=== PATIENT | female | born 1940 | race Caucasian/White ===

== ENCOUNTER 2017-02-02 10:29 | Inpatient (IN) | payer MEDICARE, OTHER ==
[2017-02-02] VITALS (11 sets, daily range): BP systolic 102–170; BP diastolic 62–85; PULSE 57–68; RESP 10–18; O2SAT 96–100
[~2017-02-02] VITALS: Ht 170.2 cm; Wt 77.4 kg
[2017-02-02] MEDS: Lactated Ringer's 1,000 ML IV SCH ×5 (05:00→15:55)
--- NOTE | 2017-02-02 06:57 | PCM.HPANE ---
Patient Data Surgeon Admitting Provider: Attending Provider:Bernard Nagy MD Primary Care Physician:Bonifacio Bernard MD Other Provider:[facility] Reason for Visit Left Knee Pain, S/P Partial Left Knee Replacement Ht/WT & BMI Height (Feet): 5 Height (Inches): 5 Weight (Kilograms): 78.65 Body Mass Index 28.00 Allergies Uncoded Allergies: NKDA (Allergy, Unknown, 01/27/17) Past Anesthesia History Anesthesia History: Positive for:: Abnormal Airway (Thyroid enlargement), Anesthesia Reactions (Nausea and vomiting), Denies:: Difficult Intubation, Fam Anesthesia Reaction, Fam Malignant Hypertherm, Malignant Hyperthermia Diabetes History Hx Diabetes?: Yes Type of Diabetes: Type II Glycemic Control: Oral Medication MRSA MRSA: No Medications Blood Thinner: Aspirin Last Dose Blood Thinner: Jan 27, 2017 Hypertension Medication: Yes (Lisinopril) Home Meds Incl Beta Fabiola: No Reported Medications Metformin 500 Mg [id number] Mg PO DAILY #2 TABLET Ref 0 01/27/17 Lisinopril 20 Mg Hlltse31 Mg PO DAILY 30 Days Ref 0 01/27/17 Atorvastatin (Lipitor)10 Mg Tab10 Mg PO DAILY Ref 0 01/27/17 Aspirin 81 Mg Zolihn11 Mg PO DAILY Ref 0 01/27/17 History History of ENT Problems?: Yes HEENT History: Positive for:: Abnormal Airway (Thyroid enlargement) Denies:: Cataracts Difficult Intubation Dysphagia Glaucoma Hearing Problem Sinus Problem Denture Type: None Teeth Condition: Within Normal Limits Hx of Heart Problems?: No Cardiovascular History: Positive for:: Hypertension (lisinopril) Denies:: AICD Heart Murmur Pacemaker Peripheral Vascular Rheumatic Fever Thrombophlebitis Valvular Heart Disease Hx of Respiratory Problem?: No Respiratory History: Denies:: Asthma COPD Chest Surgery Cough Dyspnea Emphysema Hemoptysis Oxygen Administration Pneumonia Pulmonary Embolism Tuberculosis Use of C-PAP Machine Use of Inhalers / NEBS Hx Neurologic Problems?: No Hx of GI Problems?: Yes Hx of Problems?: Yes Genitourinary History: Denies:: HX of Hemodialysis Kidney Stones Urinary Tract Infection HX of Peritoneal Dialysis: No Skin History: Denies:: History Skin Disorders? Pressure Ulcers Hx Musculoskeletal Problems?: Yes Musculoskeletal History: Positive for:: Degenerative Joint (Lt knee) Joint Replacement (Left knee) Osteoarthritis (knees) Denies:: Back Injury Fibromyalgia Myasthenia Gravis Rheumatoid Arthritis Systemic Lupus Hx of Psycho/Social Problems?: No Hx Surgeries?: Yes (2009) Hx Any Other Health Problems?: Yes Other History: Positive for:: Cancer (Malignant. melonoma) Hospitalization (neck surgery 2009) Denies:: Endocrine Disease Thyroid Disease History Blood Transfusions: Positive for:: Accept Blood Products? Denies:: Blood Transfuse Reaction Blood Transfusions Hx Diabetes: Yes Hx Alcohol Use: Yes (couple glasses of wine a week)Hx Substance Use: No Stop/Bang S-Snoring: Do You Snore Loudly: No T-Tired: feel tired, fatigued: No O-Obsered: Observed not breath: No P-Blood Pressure: treated: Yes B- Body Mass Index > 35 kg/m2: No A- Age over 50: Yes N- Neck Large Circumference: No G- Gender Male: No HILARIA Total Score: 2 Risk Assessment Category Category 1A: Patient has history of documented sleep apnea, and HAS NOT received any narcotic, sedative or anesthesia administration during this stay. Category 1B: Patient has history of documented sleep apnea, and HAS received any narcotic , sedative or anesthesia administration during this stay Category 2: Patient has SUSPECTED Obstructive Sleep Apnea, and HAS received any narcotic , sedative or anesthesia administration during this stay. Category 3: Patient has SUSPECTED Obstructive Sleep Apnea and HAS NOT received narcotic, sedative or anesthesia administration during this stay. Category 4: Outpatient in Procedural Areas with known sleep apnea or who screen positive for High Risk via the STOP/BANG questionnaire. Exam Exam General Appearance: Alert, Oriented X3, Cooperative HEENT/AIRWAY: MP 2 Lungs: Clear to Auscultation Heart: Exam Unremarkable Plan Impression Patient chart reviewed, patient interviewed and anesthestic plan with risks, benefits, and alternatives discussed, and informed consent obtained. ASA Physical Status: ASA2 Mod Systemic Disease Anesthetic Plan: SAB Bene/Risks/Altern/Consents: Yes HP Complete Prior to Induction: Yes Bertin Mauro MD Feb 02, 2017 06:57
[~2017-02-02 10:29] MED LIST: ASPI-973 PO; ATRV10T PO; Bupivacaine Liposome 1.3% 20 mL Inj NERVEBLOCK ONE; CeFAZolin Inj 2 GM in IV Premix 1 EACH IV SCH; LISI-567 PO; METF500T4 PO; Tranexamic Acid 100 mg/mL 10 mL Inj IV SCH; Vancomycin Dose per Pharmacist XX ONE
[2017-02-02] MEDS ORDERED: CeFAZolin 2 Gm/50 mL D5W Duplex Bag IV ONE (10:46)
[2017-02-02] MEDS: Vancomycin Inj 1,250 MG in 0.9% Sodium Chloride 250 ML IV SCH (11:10)
[2017-02-02] MEDS ORDERED: 0.9% Sodium Chloride 100 ML ONE (12:38)
[2017-02-02] MEDS ORDERED: Bupivacaine Liposome 1.3% 20 mL Inj ONE (12:38)
[2017-02-02] MEDS ORDERED: Lactated Ringer's 500 ML IV PRN (12:47)
[2017-02-02] MEDS ORDERED: HYDROmorphone 1 mg/mL Inj IVPUSH PRN (12:50)
[2017-02-02] MEDS ORDERED: Ondansetron 2 mg/mL 2 mL Inj IVPUSH PRN ×2 (12:50→15:00)
[2017-02-02] MEDS ORDERED: Labetalol 5 mg/mL 4 mL Inj IV PRN (12:50)
[2017-02-02] MEDS ORDERED: Atropine 0.4 mg/mL Inj IVPUSH PRN (12:50)
[2017-02-02] MEDS ORDERED: Dexamethasone 4 mg/mL Inj IVPUSH PRN (12:50)
[2017-02-02] MEDS ORDERED: EPHEDrine Sulfate 50 mg/mL Inj IVPUSH PRN (12:50)
[2017-02-02] MEDS ORDERED: Phenylephrine 10,000 mCg/mL Inj IVPUSH PRN (12:50)
[2017-02-02] MEDS ORDERED: hydrALAZINE 20 mg/mL Inj IVPUSH PRN (12:50)
[2017-02-02] MEDS ORDERED: fentaNYL-PF 50 mCg/mL 2 mL Inj IVPUSH PRN (12:50)
[2017-02-02] MEDS ORDERED: Bupivacaine Liposome 1.3% 20 mL Inj INFILTRATE ONE (13:14)
[2017-02-02] MEDS ORDERED: Gentamicin 40 mg/mL 2 mL Inj IRRIGATION ONE (13:14)
[2017-02-02] MEDS ORDERED: Bupivacaine-MPF 0.25% 30 mL Inj INFILTRATE ONE (13:15)
[2017-02-02] MEDS ORDERED: Bupivacaine-MPF 0.25%/EPI 30 mL Inj INJ ONE (13:15)
[2017-02-02] MEDS ORDERED: Lactated Ringer's 1,000 ML IV ONE (14:27)
[2017-02-02] MEDS ORDERED: Vancomycin Dose per Pharmacist XX ONE (15:00)
[2017-02-02] MEDS ORDERED: Magnesium Hydroxide 10 mL Oral Concentration PO PRN (15:00)
[2017-02-02] MEDS ORDERED: MetoCLOpramide 5 mg/mL 2 mL Inj IVPUSH PRN (15:00)
[2017-02-02] MEDS ORDERED: Polyethylene Glycol (PEG) 17 Gm Powder PO PRN (15:00)
[2017-02-02] MEDS ORDERED: Sodium Biphos-Phos 133 mL Enema RECTAL PRN (15:00)
[2017-02-02] MEDS ORDERED: diphenhydrAMINE 25 mg Capsule PO PRN (15:00)
--- NOTE | 2017-02-02 15:30 | PCM.ANEP1 ---
Post Anesthesia PACU Phase 1 Assessment Vital Signs Vital Signs Date Time Temp Pulse Resp B/P Pulse Ox O2 Delivery O2 Flow Rate FiO2 02/02/17 15:10 36.0 64 14 151/75 100 Room Air 02/02/17 11:11 36.7 16 165/75 96 Room Air Anesthetic Administered: Regional Block, SAB Level of Alertness: Awake, talking TREADWELL's with Equal Strength: No Pain: No Nausea or Vomiting: No CV Function & Hydration Stable: Yes Airway Device: Oxygen Delivery: Room Air Lungs: Normal Air Movement PACU Phase 2 Assessment Complications: No Follow up Care: No Patient Instructions Provided: N/A Bertin Mauro MD Feb 02, 2017 15:30
--- NOTE | 2017-02-02 15:42 | OP ---
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 PROCEDURE: 1. Revision to total knee replacement. 2. Complete synovectomy. SURGEON: Bernard Nagy M.D. WINDMILL MECHANIC: Fran Dickey (pharmacy technician assistant required due to the complexity of the operation). INDICATIONS: This woman has severe disability with demonstrated progressive loosening of the implant over a two year observation. She is not disabled to the point that she requests and needs to have this revised to pursue activities of daily living. She understands and accepts the potential for risks and complications, which include but is not limited to infection, thromboembolic, neurovascular events, as well as the potential for implant failure. DESCRIPTION OF PROCEDURE: The patient was prepped and draped in the usual sterile fashion. An anteromedial approach was made through her previous incision. An effusion was encountered which was slightly off color, but there was no evidence of infection. Metallic staining of the synovium was noted throughout the knee. The femoral component was noted to be grossly loose and was removed with a clamp. The tibial component had a fixed polyethylene. The polyethylene was removed as well. The patella did sublux laterally. It was cut transversely, sized to a 32 and drill holes were made. Drill holes placed in the distal femur and Whitesides lines. The epicondylar axis was utilized to obtain appropriate rotation after a 5 degree distal femoral cut was made and the femur had been sized to a 6 component. Chamfer cuts were made after the chamfer cutting block was appropriately fixed and the bone fragments removed. All meniscal tissue and osteophytes were removed from the knee. Excess cement was removed where it was loose and/or impeded the revision process. The tibial guide was utilized to make a proximal tibial cut with the bone fragment removed and the tibia was subsequently sized to a D component which was fixed in appropriate position, rotation and trial reduction was performed. The 12 mm polyethylene produced excellent alignment, tracking, soft tissue tension. Wounds were irrigated with extensive sterile irrigant and the components were cemented in place. Excess cement was removed during the curing process and the final construct was assembled. The tourniquet was let down. Hemostasis was achieved and a deep Hemovac drain was left. The wounds were closed with #2 Quill deep throughout the procedure and then at the final end of the procedure a complete synovectomy was performed removing all metal stained synovial tissue, carefully peeling it off the deep capsular tissue with the use of a rongeur, and pickups and Metzenbaum scissors. The deep fascia was then closed with #2 Quill deep followed by 2-0 Vicryl, 3-0, and a 4-0 intracuticular stitch. The patient tolerated the procedure well. There were no complications. She was taken to the recovery room in stable condition. She tolerated the procedure well.
[2017-02-02 15:48] LABS: APPEARANCE,URINE CLEAR (CLEAR,HAZY); COLOR,URINE STRAW (YELLOW); OCCULT BLOOD,URINE NEGATIVE (NEGATIVE); UROBILINOGEN,URINE NORMAL (NORMAL)
[2017-02-02] MEDS: Ketorolac 15 mg/mL Inj IVPUSH PRN (15:58)
--- NOTE | 2017-02-02 16:20 | DRSVH ---
PROCEDURE: X-RAY LEFT KNEE, ONE OR TWO VIEWS ([id number]) INDICATIONS: postoperative knee TECHNIQUE: 2 views of the knee acquired. COMPARISON: [facility], , XR KNEE 1 OR 2VW LT, 05/07/2015, 12:25. FINDINGS: Bones: Patient is status post knee joint arthroplasty revision with a complete left knee prosthesis. Hardware components are in expected positions. Visualized bony structures are intact. Soft tissues: Overlying postoperative changes are noted. IMPRESSION: 1. Expected postsurgical changes status post left knee arthroplasty revision. Dictated by: Gibson Lopez M.D. on 02/02/2017 at 16:13 Approved by: Gibson Lopez M.D. on 02/02/2017 at 16:18
[2017-02-02] MEDS: Sodium Chloride LOK Flush 10 mL Syringe IV SCH (16:30)
[2017-02-02] MEDS: HYDROcodone-APAP 5-325 mg Tablet PO PRN ×2 (16:34→20:29)
[2017-02-02] MEDS ORDERED: Ondansetron 2 mg/mL 2 mL Inj ONE (16:49)
[2017-02-02] MEDS ORDERED: fentaNYL-PF 50 mCg/mL 2 mL Inj ONE (16:49)
[2017-02-02] MEDS ORDERED: HYDROmorphone 0.5 mg/0.5 mL iSecure Syringe IVPUSH PRN (17:00)
--- NOTE | 2017-02-02 19:17 | NUR ---
POST-OP Patient received from PACU via a hospital bed. On room air. IVF ongoing. Dressing in her L knee is CDI. Hemovac in place, clamped at this time. To be unclamped at 2000 per report. IFC intact and draining to [place] colored UO. Patient rated her pain as 5/10 on her L knee. Denies nausea. No emesis noted. Denies SOB. Oriented to room and call light. Vital signs done by Melissa Burns CNA upon patients arrival to the floor but was not saved.
--- NOTE | 2017-02-02 20:00 | NUR ---
HEMOVAC Hemovac unclamped at 1999, draining well, sanguineous fluid. Addendum: 02/03/17 at 0439 by ULISES SANZ RN At 414, at total of 8.25 hours, hemovac put out 90 ml, for 10.9ml/hr.
[2017-02-02] MEDS ORDERED: 0.9% Sodium Chloride 250 ML ONE (20:08)
[2017-02-02] MEDS: CeFAZolin Inj 2 GM in IV Premix 1 EACH IV SCH (20:14)
[2017-02-02] MEDS: Senna-Docusate 8.6-50 mg Tablet PO SCH (20:16)
[2017-02-02] MEDS ORDERED: Vancomycin Inj 1,250 MG in 0.9% Sodium Chloride 250 ML IV ONE (23:00)
[2017-02-03] MEDS: Sodium Chloride LOK Flush 10 mL Syringe IV SCH ×4 (00:16→22:56)
[2017-02-03 00:20] VITALS: BP 143/71; PULSE 69; RESP 18; O2SAT 97
[2017-02-03] MEDS: HYDROcodone-APAP 5-325 mg Tablet PO PRN ×4 (00:20→12:19)
[2017-02-03] MEDS: CeFAZolin Inj 2 GM in IV Premix 1 EACH IV SCH (04:16)
[2017-02-03 04:24] VITALS: BP 125/74; PULSE 61; RESP 18; O2SAT 96
[2017-02-03 07:52] LABS: BASOPHILS % (AUTO) 0.6 % (0-3); EOSINOPHILS % (AUTO) 2.1 % (0-5); MONOCYTES % (AUTO) 6.6 % (4-12); Mean Corpuscular Hemoglobin 28.9 pg (27.0-35.0); Mean Corpuscular Volume 89.2 fL (81-100); NEUTROPHILS % (AUTO) 67.6 % (40-74); Platelet Count 270 bil/L (150-400)
[2017-02-03 08:28] VITALS: BP 130/70; PULSE 80; RESP 16; O2SAT 97
[2017-02-03] MEDS: Senna-Docusate 8.6-50 mg Tablet PO SCH ×2 (08:32→20:03)
[2017-02-03] MEDS: Ketorolac 15 mg/mL Inj IVPUSH PRN (11:03)
--- NOTE | 2017-02-03 12:30 | NUR ---
Evaluation completed. Please go to "Notes" then click on "Assessments and Notes" (bottom left corner of screen). Then select appropriate discipline tab on top of screen.
--- NOTE | 2017-02-03 12:37 | PCM.PNORTH ---
Subjective Date of Service: Feb 03, 2017 Visit Information: Reason for Visit Left Knee Pain, S/P Partial Left Knee Replacement Surgery/Surgery Date Post-Op Day # Date of Admission: Feb 02, 2017 at 16:48 Hospital Day # Subjective Palpation awake and alert this morning and sitting up in bed. No complaints of pain at this time. Discussed inpatient therapy with patient and encouraged her to participate fully with him. Also discussed pain medication and moving away from IV pain meds and moving to either [place] 5 with Vistaril or Percocet 5 with Vistaril as needed. Nursing was in the room and we discussed trying to medicate her prior to her therapy sessions. Patient is concerned about discharge on postop day 2 and we have discussed this at some length and I have described to her physical therapy recommendations regarding discharge and when they feel she is appropriate for this. We have also discussed stair training and patient indicates she has 5 steps at home to enter her home. We will discontinue Hemovac drain today on postop day 1 at 24 hours and discontinue Larios by postop day 2. Patient indicates she has arranged formal outpatient therapy to begin next Monday after discharge. Postop General: No Complaints, No Shortness of Breath, No Chest Pain, Good Appetite Pain Management: PO, IV Push Objective Exam Objective Alert and oriented 3 and pleasant. Interoperative dressing is clean dry and intact Calf and thigh are soft and nontender Toe wiggle and sensation are intact at left lower extremity distally Right lower extremity SCD in place and working Larios catheter in place and working Hemovac drain in place and working A few sidesteps only with physical therapy as of this time. Vital Signs and I/O Vital Sign - Last Date Time Temp Pulse Resp B/P Pulse Ox O2 Delivery O2 Flow Rate FiO2 02/03/17 08:28 37.2 80 16 130/70 97 Room Air Intake and Output 02/02/17 02/02/17 02/03/17 Cumulative From/Thru 15:00 23:00 07:00 01/27/17 14:47 - 02/03/17 05:49 Intake Total 400 ml 1398 ml 595 ml 2393 ml Output Total 800 ml 300 ml 690 ml 1790 ml Balance -400 ml 1098 ml -95 ml 603 ml Intake Oral 400 ml 250 ml 650 ml IV Total 400 ml 998 ml 345 ml 1743 ml Output Urine Total 750 ml 300 ml 600 ml 1650 ml Drainage Total 0 ml 90 ml 90 ml Estimated Blood Loss 50 ml 50 ml # Bowel Movements 0 0 Lab & Micro Results Laboratory Tests Test 02/02/17 15:37 02/03/17 05:05 Urine Color Straw (YELLOW) Urine Appearance Clear (CLEAR,HAZY) Urine pH 5.0 (5.0-8.0) Urine Specific [place] 1.005 (1.003-1.035) Urine Protein Negativemg/dL (NEG,TRACE) Urine Glucose (UA) Negativemg/dL (NEGATIVE) Urine Ketones Negativemg/dL (NEGATIVE) Urine Occult Blood Negative (NEGATIVE) Urine Nitrite Negative (NEGATIVE) Urine Bilirubin Negative (NEGATIVE) Urine Urobilinogen Normalmg/dL (NORMAL) Urine Leukocyte Esterase Negative (NEGATIVE) Urine RBC 0-2/hpf (0-2) Urine WBC 0-5/hpf (0-5) Urine Epithelial Cells Few/hpf (NONE-MOD) Urine Crystals None seen (NONE SEEN) Urine Bacteria Few/hpf (NONE-FEW) Urine Hyaline Casts None/lpf (NONE) Urine Granular Casts None seen (NONE SEEN) Urine Waxy Casts None seen (NONE SEEN) Urine Red Blood Cell Casts None seen (NONE SEEN) Urine White Blood Cell Casts None seen (NONE SEEN) Urine Mucus None seen (None Seen) Urine Trichomonas None seen (NONE SEEN) Urine Yeast None (NONE SEEN) Urinalysis Comment None Urine Culture Reflexed Not indicated White Blood Count 8.7th/mm3 (3.8-10.1) Red Blood Count 3.60mil/mm3 (3.90-5.20) Hemoglobin 10.4g/dL (12.0-15.6) Hematocrit 32.1% (35.0-46.0) Mean Corpuscular Volume 89.2fL (81-100) Mean Corpuscular Hemoglobin 28.9pg (27.0-35.0) Mean Corpuscular Hemoglobin Concent 32.4% (32.0-37.0) Red Cell Distribution Width 14.3% (12.3-15.4) Platelet Count 270bil/L (150-400) Neutrophils (%) (Auto) 67.6% (40-74) Lymphocytes (%) (Auto) 23.0% (14-46) Monocytes (%) (Auto) 6.6% (4-12) Eosinophils (%) (Auto) 2.1% (0-5) Basophils (%) (Auto) 0.6% (0-3) Result Diagram: 02/03/17 0505 General Appearance: Alert, Oriented X3, Cooperative, No Acute Distress Extremities: No Compartment Syndrom Noted, Thigh & Calf Soft/Nontender Postop Sensory Motor: Distal Motor Intact, Movement in Toes, Distal Sensation Intact SURGICAL WOUND : Drain Location Body Site: Knee Wound Drainage Type: Hemovac Activity: Activity per PT, Ambulate with PT (weightbearing as tolerated on the left lower extremity using a front wheeled walker) Catheters: Urethral 2 Way Larios Assessment & Plan Impression Patient is a 77-year-old female who is undergone an elective left knee revision surgery on 02/02/[address] Bernard Nagy. Patient is postop day #1 And has had one therapy session which she did not accomplish gait but did take a few side steps. Considering that she is a revision knee surgery her progress may possibly be somewhat slower. Problems: Plan Patient is a 77-year-old female who is undergone an elective left knee revision surgery on 02/02/[address] Bernard Nagy. Continue weightbearing as tolerated on the left lower extremity using a front wheeled walker. Continue formal physical therapy for mobility, gait and safety. Patient has arranged outpatient therapy to begin on 02/08/2017. Continue by mouth pain medications as needed with [place] 5+ Vistaril or Percocet 5+ Vistaril as needed. Continue ASA 81 mg EC by mouth twice a day 6 weeks postop for DVT prophylaxis. Hemovac drain is in and working and will be discontinued this afternoon by nursing. Larios catheter is in and working and will be discontinued no later than postop day #2. Nursing please fit patient with bilateral thigh-high BANDAR hose as ordered today. Right may be fitted today and left may be stated on postop day 2 after bandages change. Nursing please discontinue Larios no later than postop day #2. Nursing please discontinue Hemovac drain today. Nursing please move patient to either [place] 5 with Vistaril or Percocet 5 with Vistaril for by mouth pain control. Please do not continue IV pain medication. Follow-up in 2 weeks at [facility] orthopedic clinic on prearranged appointment for wound check and suture removal. Follow-up in 6 weeks at [facility] orthopedic clinic on prearranged appointment with Dr. Bernard Nagy with left two-view knee x-rays on arrival Anticipate discharge to home with spouse as caregiver on postop day #2, 2016 VTE Prophylaxis: SCDs (right lower extremity), BANDAR Hose (bilateral thigh-high) , Other (ASA 81 mg EC by mouth twice a day 6 weeks postop for DVT prophylaxis) Stevenson Larson PA-C Feb 03, 2017 12:37
[2017-02-03] MEDS ORDERED: oxyCODONE-Acetamin 5-325 mg Tablet PO PRN (12:45)
[2017-02-03] MEDS: hydrOXYzine Pamoate 25 mg Capsule PO PRN ×2 (15:49→23:24)
[2017-02-03 16:49] VITALS: BP 161/78; PULSE 97; RESP 18; O2SAT 96
--- NOTE | 2017-02-03 17:24 | NUR ---
Hemovac Per orders Hemovac d/c'd intact.
--- NOTE | 2017-02-03 18:28 | NUR ---
Activity Pt up with PT this afternoon and walked about 30 feet. Tolerated activity well. Pt had increase in pain this afternoon. Pain medication given with 25mg Vistaril. Pt stated little relief from pain medication, however MD this morning stated we should shy away from IV pain medication and pt states she will get thru it. Pt doing exercises in the bed recommended by PT. Pt up and to the recliner for dinner and able to get oob without assistance. Ice given for knee. Care continues.
[2017-02-03 19:54] VITALS: BP 160/73; PULSE 83; RESP 18; O2SAT 97
[2017-02-04] MEDS: hydrOXYzine Pamoate 25 mg Capsule PO PRN (03:12)
--- NOTE | 2017-02-04 03:43 | NUR ---
Pain Pt had increased pain overnight. Stated she over did it today with PT. Pain 5/10, Oxycodone given at beginning of shift with minor results. Pt agreed to try percocet at the next 4hr interval with vistaril. Pt rated pain 8/10, pain was decrease to 7/10, she states not effective. Ice packs in place and 4hrs later rec'd oxycodone with + effects, stated spasms have decreased. Pt up to BSC, using FWW and assistance to get up, toe touch precautions in place. Neuro checks done, +CMS. Call light in place, bed in low position. Care continues.
[2017-02-04 05:18] VITALS: BP 161/79; PULSE 76; RESP 16; O2SAT 93
[2017-02-04] MEDS: Ketorolac 15 mg/mL Inj IVPUSH PRN (08:06)
[2017-02-04] MEDS: HYDROcodone-APAP 5-325 mg Tablet PO PRN (08:06)
[2017-02-04] MEDS: Senna-Docusate 8.6-50 mg Tablet PO SCH ×2 (08:13→21:21)
[2017-02-04] MEDS: Sodium Chloride LOK Flush 10 mL Syringe IV SCH ×2 (08:13→16:23)
[2017-02-04] MEDS ORDERED: oxyCODONE-Acetamin 5-325 mg Tablet PO PRN (08:23)
[2017-02-04] MEDS ORDERED: Acetaminophen IV 1,000 mg IV ONE (08:25)
[2017-02-04] MEDS ORDERED: 0.9% Sodium Chloride 0 ML ONE (08:45)
--- NOTE | 2017-02-04 09:15 | NUR ---
RADHA signed. Aarti Hernandez PEDIATRIC HOSPITALIST
--- NOTE | 2017-02-04 10:10 | NUR ---
Social Work- Multi-Disciplinary Rounds/Initial Assessment/ Readiness for Discharge Data: See Initial Assessment. Pt is a 77 year old female admitted 02/02/17 for left knee pain, s/p partial left knee replacement per H&P. Pt's insurance is [facility] and [employer]. Pt's PCP is Bonifacio Bernard MD. Pt's DPOA/NOK and identified support person is Hector Mondragon [phone]. Pt's readmit risk score is 0. Pt discussed in AM rounds with photo manager. Pt will work with PT today and anticipate discharge later today or tomorrow. No social work needs identified. SW met with pt at bedside regarding discharge plan, SW role explained. Pt alert and oriented x3. Pt identified her Pt's capacity for self care was assessed. Pt resides on [address] in a single story home with her where she is independent at baseline. Pt has a cane and walker at home for use but at baseline she does not typically use DME. Pt has no history of HH or SNF. PT has evaluated pt and pt was able to ambulate 30 feet CGA with fww. PT anticipates pt to progress and complete stairs prior to discharge. Pt has outpt PT scheduled on [place]. Pt has no LTC or VA benefits. Pt reports that her is independent and active and will be involved in her care. Pt reports that she enjoys golf and family time. Pt easily engaged in conversation and maintained logical thought process, responded appropriately to questions. For these reasons, no concerns related to pt's capacity for self care identified. Pt has DPOA on file, pt's Hector Mondragon is DPOA. Pt provided with SILK WINDING MACHINE OPERATOR contact information and Discharge Planning Checklist. SW instructed pt to call SW phone number if they have needs identified in the booklet. Pt anticipated to discharge home with to transport and follow up with outpt PT. UC aware that pt will require Priority Boarding pass [place] the ferry home. No additional social work needs identified at this time, SW will continue to follow if needs arise. Assessment: Pt who is independent at baseline and who has assistance at home. Plan: Pt anticipated to discharge home with to transport and follow up with outpt PT. UC aware that pt will require Priority Boarding pass for the ferry home. No additional social work needs identified at this time, SW will continue to follow if needs arise. Aarti Hernandez, SILK WINDING MACHINE OPERATOR Addendum: 02/04/17 at 1017 by JUAN BOWEN Amended: Links added.
--- NOTE | 2017-02-04 10:22 | PCM.PNORTH ---
Subjective Date of Service: Feb 04, 2017 Visit Information: Reason for Visit Left Knee Pain, S/P Partial Left Knee Replacement Surgery/Surgery Date L TOTAL KNEE REVISION 02/02/17 Post-Op Day # 2 Date of Admission: Feb 02, 2017 at 16:48 Hospital Day # Subjective Patient reports she had a tough night last night with pain management. She denies nausea. She is passing flatus but no BM yet. She was taking Percocet yesterday but seems to be doing better with Everson and vistaril today. She nods off during our conversation. She is progressing slowly with PT. She was seen by Dr. Nagy this morning, who recommended she work with PT today and plan for discharge tomorrow. She lives on [address] and will need a medical pass [facility]. She has outpatient PT scheduled to start next week. Postop General: No Shortness of Breath, No Chest Pain, Good Appetite Pain Management: PO, IV Push Objective Exam Objective Patient is seen sitting up in bed. She appears quite comfortable. She nods off during our conversation. She had a dose of Everson this morning. Vital Signs and I/O Vital Sign - Last Date Time Temp Pulse Resp B/P Pulse Ox O2 Delivery O2 Flow Rate FiO2 02/04/17 05:18 36.8 76 16 161/79 93 Room Air Intake and Output 02/03/17 02/03/17 02/04/17 Cumulative From/Thru 15:00 23:00 07:00 01/27/17 14:47 - 02/04/17 06:29 Intake Total 1000 ml 200 ml 3593 ml Output Total 740 ml 250 ml 2780 ml Balance 260 ml -50 ml 813 ml Intake Oral 1000 ml 200 ml 1850 ml IV Total 1743 ml Output Urine Total 675 ml 250 ml 2575 ml Drainage Total 65 ml 155 ml Estimated Blood Loss 50 ml # Bowel Movements 0 Result Diagram: 02/03/17 0505 General Appearance: Alert, Oriented X3, Cooperative, No Acute Distress Extremities: Distal Pulses Palpable, Thigh & Calf Soft/Nontender Postop Sensory Motor: Distal Motor Intact, NVI Distally SURGICAL WOUND : Wound Location/Description Left knee: Surgical dressing is removed. The wound is clean, dry and intact. There is no erythema or drainage present. Steri-Strips are in place. The knee is cleansed with hydrogen peroxide and redressed with Silverlon dressing and Island dressing. The drain site is dressed with 2 x 2 gauze and Tegaderm. Activity: Activity per PT, Ambulate with PT (weightbearing as tolerated on the left lower extremity using a front wheeled walker) Catheters: None Assessment & Plan Impression POD #2 status post left total knee revision from a uni- Problems: Plan Weightbearing: Weightbearing as tolerated with walker DVT prophylaxis: Aspirin 81 mg once a day 6 weeks Physical therapy for transfers, progressive ambulation, therapeutic exercise Wound care: Dressing change today by PA today. Silverlon was not available for dressing change. I will change dressing tomorrow prior to DC Patient will need a ferry pass for [place] for tomorrow. Her will check the schedule today Discharge plan: Discharge home tomorrow. Start outpatient physical therapy next week Follow-up plan: In 2 weeks at [facility] with PA for wound check and at [address] Nagy with x-rays Pain Management: Percocet, Toradol, oxycodone, Everson, Vistaril VTE Prophylaxis: SCDs (right lower extremity), BANDAR Hose (bilateral thigh-high) , Other (ASA 81 mg EC by mouth twice a day 6 weeks postop for DVT prophylaxis) Resuscitation Status: CPR: Attempt Resuscitation [place] City[place] Liu PA-C Feb 04, 2017 10:22
[2017-02-04 11:37] VITALS: BP 130/66; PULSE 73; RESP 16; O2SAT 96
--- NOTE | 2017-02-04 12:28 | NUR ---
Pain IV tylenol once has been effective per patient with improved pain 4/10 to left knee. PRN Oxycodone given as ordered prior to patient working with physical therapy this afternoon after meals. Continue to monitor left knee pain.
--- NOTE | 2017-02-04 13:17 | NUR ---
Physical therapy Patient is up and out of room using FWW with physical therapy. PRN oxycodone effective.
[2017-02-04 20:40] VITALS: BP 167/75; PULSE 91; RESP 16; O2SAT 97
[2017-02-05] MEDS: Sodium Chloride LOK Flush 10 mL Syringe IV SCH ×2 (00:44→08:33)
--- NOTE | 2017-02-05 02:47 | NUR ---
Pain Adequate pain control achieved with Roxicodone throughout night. Pt has concerns of timing of pain medication and Physical Therapy. Will mention to day nurse in report to attempt timing 30-60min prior to PT. Addendum: 02/05/17 at 0649 by SASCHA SALCEDO RN Pain increased in morning hours. Vistaril and later Toradol were added to help pain control. Frequent rounding continues.
[2017-02-05] MEDS: hydrOXYzine Pamoate 25 mg Capsule PO PRN ×4 (03:27→15:08)
[2017-02-05 04:37] VITALS: BP 175/82; PULSE 83; RESP 16; O2SAT 97
--- NOTE | 2017-02-05 05:43 | PCM.DIORTH ---
Ortho Discharge Instruction Date of Service: Feb 05, 2017 Dates of Hospitalization Date of Hospital Admission Feb 02, 2017 at 16:48 Providers Admitting Physician: Bernard Nagy MD Primary Care Physician: Bonifacio Bernard MD Attending Physician: Bernard Nagy MD Diet Discharge Diet: No restrictions Activity Discharge Activity-General: Balance rest and activity, Elevate extremity, Elevate & ice extremity, Ice incision 3-5 time/day for 20min Left Lower Extremity: Weight Bearing as tolerated Discharge Assist Device: Front Wheeled Walker Dressing and Incisional Care Discharge Dressing Care: Keep dressing clean, dry & intact, Change soiled dressing (reuse the silver pad for 1 week. Handle it only by the corners. Have clean hands when changing the dressing.), Other (Leave steri strips in place) Discharge Hygiene: May shower (see instructions below), DO NOT soak incision under water, NO bathtub, hot tub or whirlpool Additional Instructions Discharge Instructions Increase activity a little more each day. Push yourself with the bending and straightening. Get up and move every hour you are awake and either do some of the exercises, stretching or walking. You may shower in 2 days, with wound covered in plastic wrap. Weightbearing: Weightbearing as tolerated with walker DVT prophylaxis: Aspirin 81 mg twice a day 6 weeks Start outpatient Physical therapy next week Wear the compression stockings for one month on the surgical leg, and 2 weeks on the right leg. Change the current dressing in 3 days. Get the silver dressing wet with the saline in the syringe, apply silver side to skin, cover with white adhesive dressing. Since pain medications cannot be refilled by phone or fax, you may have your PCP manage further pain medications. Only one office should be handling your prescriptions. Follow Up Plan Follow Up Plan Follow-up plan: In 2 weeks at [facility] with [facility] for wound check and at [address] Nagy with x-rays Call your provider for: Fever, Chills, Shortness of breath, Vomitting, Drainage at incision (increasing), Wound redness, Increasing pain (for no reason ) Becca Wayne PA-C Feb 05, 2017 05:43
--- NOTE | 2017-02-05 05:46 | PCM.PNORTH ---
Subjective Date of Service: Feb 05, 2017 Visit Information: Reason for Visit Left Knee Pain, S/P Partial Left Knee Replacement Surgery/Surgery Date L TOTAL KNEE REVISION 02/02/17 Post-Op Day # 3 Date of Admission: Feb 02, 2017 at 16:48 Hospital Day # Subjective Patient name related well with physical therapy yesterday afternoon. She had increased pain last night. Pain has been relieved with oxycodone, Vistaril and Toradol. Patient plans in getting the 5:[facility] [place] [facility] Postop General: No Shortness of Breath, No Chest Pain, Good Appetite Pain Management: PO, IV Push Objective Exam Objective Patient is seen sitting up in bed Vital Signs and I/O Vital Sign - Last Date Time Temp Pulse Resp B/P Pulse Ox O2 Delivery O2 Flow Rate FiO2 02/05/17 04:37 36.8 83 16 175/82 97 Room Air Intake and Output 02/04/17 02/04/17 02/05/17 Cumulative From/Thru 15:00 23:00 07:00 01/27/17 14:47 - 02/05/17 05:33 Intake Total 950 ml 850 ml 5393 ml Output Total 625 ml 3405 ml Balance 325 ml 850 ml 1988 ml Intake Oral 800 ml 850 ml 3500 ml IV Total 150 ml 1893 ml Output Urine Total 625 ml 3200 ml Drainage Total 155 ml Estimated Blood Loss 50 ml # Voids 4 4 # Bowel Movements 0 0 Result Diagram: 02/03/17 0505 General Appearance: Alert, Oriented X3, Cooperative, No Acute Distress Extremities: Distal Pulses Palpable, No Compartment Syndrom Noted, Tenderness/ Swelling Noted Postop Sensory Motor: Distal Motor Intact, Movement in Fingers, NVI Distally SURGICAL WOUND : Wound Location/Description There is minimal serous drainage on the bandage. Dressing is changed. 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 Discharge plan: Discharge home this afternoon. Start outpatient physical therapy next week Discharge instructions are reviewed with patient and her Follow-up plan: In 2 weeks at [facility] with [facility] for wound check and at [address] Nagy with x-rays Pain Management: [place], oxycodone, toradol, Tylenol, dilaudid IV VTE Prophylaxis: SCDs (right lower extremity), BANDAR Hose (bilateral thigh-high) , Other (ASA 81 mg EC by mouth twice a day 6 weeks postop for DVT prophylaxis) Resuscitation Status: CPR: Attempt Resuscitation [place] PA-C Feb 05, 2017 05:46
[2017-02-05] MEDS: Ketorolac 15 mg/mL Inj IVPUSH PRN (05:48)
--- NOTE | 2017-02-05 07:32 | NUR ---
BP Pt BP yuridia overnight 175/82 - report given to day shift to approach issue with physician. Lisinopril morning dose given early to aid with that. Pt states she takes it in the evening at home.
[2017-02-05] MEDS: Senna-Docusate 8.6-50 mg Tablet PO SCH (08:33)
[2017-02-05 09:04] VITALS: BP 159/83
[2017-02-05] MEDS ORDERED: HYDR-3797 PO (09:36)
[2017-02-05] MEDS ORDERED: OXYC5TAB72 PO (09:36)
[2017-02-05] MEDS ORDERED: ASPI81TA3 PO (09:36)
[2017-02-05] MEDS ORDERED: DOCU-41 PO (09:36)
--- NOTE | 2017-02-05 09:41 | PCM.DC.ORT ---
Discharge Summary Date of Service: Feb 05, 2017 Date of Hospital Admission: Feb 02, 2017 at 16:48 Date of Surgery: Feb 02, 2017 Date of Discharge: Feb 05, 2017 Reason for Hospitalization: Left knee arthritis Procedures Performed: Conversion of left knee medial unicompartmental arthroplasty to total knee arthroplasty Hospital Course: The patient was admitted to the hospital on 02/02/2017 and underwent the above procedure. Antibiotic prophylaxis consisting of Ancef and vancomycin. The surgeon was Dr. Nagy. A Larios was placed perioperatively. Patient tolerated the procedure well and was transferred to recovery room in stable condition. Larios was discontinued on postop day 1. Hemovac drain was discontinued on postop day 1. Patient had physical therapy to work on ambulation and transfers. Weightbearing as tolerated with walker. Pain was managed with Dilaudid, Percocet, Vistaril, Toradol, [place], Tylenol. DVT prophylaxis: Aspirin 81 mg twice a day, SCDs, BANDAR hose. Patient initially had some pain management issues however she progressed well with physical therapy and on POD-3 was discharged home. Follow-up: at [facility] 2 weeks postop for wound check and at [address] Nagy with x-ray. Since the patient lives on [place], we will prescribe her initial pain management medications. Patient would like to have her family doctor manage her pain medicine after that [place] This is available with us as long as only 1 office is managing her pain medications. Outpatient physical therapy is scheduled to start next week. Diagnosis at Time of Discharge Status post left knee conversion of unicompartmental arthroplasty to total knee arthroplasty Problems: Disposition: Discharged home in stable condition with her to assist in her care Discharge Instructions: Activity Discharge Activity-General: Balance rest and activity, Elevate extremity, Elevate & ice extremity, Ice incision 3-5 time/day for 20min Left Lower Extremity: Weight Bearing as tolerated Discharge Assist Device: Front Wheeled Walker Dressing and Incisional Care Discharge Dressing Care: Keep dressing clean, dry & intact, Change soiled dressing (reuse the silver pad for 1 week. Handle it only by the corners. Have clean hands when changing the dressing.), Other (Leave steri strips in place) Discharge Hygiene: May shower (see instructions below), DO NOT soak incision under water, NO bathtub, hot tub or whirlpool Additional Instructions Discharge Instructions Increase activity a little more each day. Push yourself with the bending and straightening. Get up and move every hour you are awake and either do some of the exercises, stretching or walking. You may shower in 2 days, with wound covered in plastic wrap. Weightbearing: Weightbearing as tolerated with walker DVT prophylaxis: Aspirin 81 mg twice a day 6 weeks Start outpatient Physical therapy next week Wear the compression stockings for one month on the surgical leg, and 2 weeks on the right leg. Change the current dressing in 3 days. Get the silver dressing wet with the saline in the syringe, apply silver side to skin, cover with white adhesive dressing. Since pain medications cannot be refilled by phone or fax, you may have your PCP manage further pain medications. Only one office should be handling your prescriptions. Aspirin Chew (Aspirin Chew) 81 Mg Chew 81 MG PO BID Atorvastatin (Lipitor) 10 Mg Tab 10 MG PO DAILY Docusate Sodium (Colace) 100 Mg Capsule 100 MG PO BID PRN PRN For Constipation Hydroxyzine Pamoate (HydrOXYzine Pamoate) 25 Mg Capsule 25-50 MG PO Q6H PRN PRN spasms/restlessness Lisinopril (Lisinopril) 20 Mg Tablet 40 MG PO DAILY Metformin (Metformin) 500 Mg Tablet 750 MG PO DAILY oxyCODONE (oxyCODONE) 5 Mg Tablet 5-15 MG PO Q4H PRN PRN For Severe Pain Becca Wayne PA-C Feb 05, 2017 09:41
--- NOTE | 2017-02-05 12:29 | NUR ---
Social Work- Multi-Disciplinary Rounds/Discharge Data: EMR reviewed. Pt is on day 3 of hospitalization for total left knee arthroplasty. Per Ortho and ticket worker in rounds, pt is medically ready for discharge. Discharge orders are active. SW met with pt and at bedside regarding discharge plan. Pt and agreeable. Priority Boarding pass is completed in pt's chart. Pt has outpt PT set for next week. Pt's walker is at bedside. Pt's follow up instructions are as follows in the discharge packet-- In 2 weeks at [facility] with PA for wound check and at [address] Nagy with x-rays. Pt to discharge home with outpt PT services and no additional social work needs, to transport via POV. Assessment: Pt who will receive outpt PT Plan: Pt to discharge home with outpt PT services and no additional social work needs, to transport via POV. Aarti Hernandez, MATERIAL CREW SUPERVISOR
[2017-02-05 12:41] VITALS: BP 156/82; PULSE 86; RESP 20; O2SAT 98
--- NOTE | 2017-02-05 15:16 | NUR ---
discharged home to [place] with . Has Rx for Oxycodone, Vistaril, Docusate, BID ASA. has f/u appts already scheduled, at 2 wks and 6wks. Discharged teaching done and pt able to explain back
== END 2017-02-05 15:27 | disposition home or self-care (01) | DRG 468 ==
LOC: SAS 10:29 → OSC 16:48
PROVIDERS: ADMIT Orthopaedic Surgery; ATTEND Orthopaedic Surgery
PROC: 0SPD0JZ Removal of Synthetic Substitute from Left Knee Joint, Open Approach (ICD-10-PCS; 2017-02-02)
PROC: 0SBD0ZZ Excision of Left Knee Joint, Open Approach (ICD-10-PCS; 2017-02-02)
PROC: 0SRD0J9 Replacement of Left Knee Joint with Synthetic Substitute, Cemented, Open Approach (ICD-10-PCS; principal; 2017-02-02 12:15)
DX: T84.89XA Other specified complication of internal orthopedic prosthetic devices, implants and grafts, initial encounter (principal); Y83.8 Other surgical procedures as the cause of abnormal reaction of the patient, or of later complication, without mention of misadventure at the time of the procedure; M25.562 Pain in left knee; Z96.652 Presence of left artificial knee joint; M65.862 Other synovitis and tenosynovitis, left lower leg

== ENCOUNTER → 2017-04-06 | Day surgery (SDC) | payer MEDICARE, OTHER ==
[~2017-04-06] VITALS: Ht 167 cm; Wt 76.8 kg
[~2017-04-06] MED LIST changes: -ASPI-973 PO; +ASPI81TA3 PO; +Atropine 0.4 mg/mL Inj IVPUSH PRN; -Bupivacaine Liposome 1.3% 20 mL Inj NERVEBLOCK ONE; +Bupivacaine-MPF 0.5% 30 mL Inj INFILTRATE ONE; -CeFAZolin Inj 2 GM in IV Premix 1 EACH IV SCH; +DOCU-41 PO; +Dexamethasone 4 mg/mL Inj INTRARTICU ONE; +Dexamethasone 4 mg/mL Inj IVPUSH PRN; +EPHEDrine Sulfate 50 mg/mL Inj IVPUSH PRN; +HYDR-3797 PO; +HYDROmorphone 1 mg/mL Inj IVPUSH PRN; +Labetalol 5 mg/mL 20 mL Inj IV PRN; +Lactated Ringer's 1,000 ML IV ONE; +Lactated Ringer's 1,000 ML IV SCH; +Lactated Ringer's 500 ML IV PRN; +MetoCLOpramide 5 mg/mL 2 mL Inj IVPUSH PRN; +OXYC-530 PO; +Ondansetron 2 mg/mL 2 mL Inj IVPUSH PRN; +Ondansetron 2 mg/mL 2 mL Inj ONE; +Phenylephrine 10,000 mCg/mL Inj IVPUSH PRN; +Propofol 10,000 mCg/mL 20 mL Inj ONE; -Tranexamic Acid 100 mg/mL 10 mL Inj IV SCH; -Vancomycin Dose per Pharmacist XX ONE; +fentaNYL-PF 50 mCg/mL 2 mL Inj IVPUSH PRN; +fentaNYL-PF 50 mCg/mL 2 mL Inj ONE; +hydrALAZINE 20 mg/mL Inj IVPUSH PRN
[2017-04-06 11:33] VITALS: BP 164/84; PULSE 88; RESP 16; O2SAT 98
--- NOTE | 2017-04-06 13:56 | PCM.HPANE ---
Patient Data Surgeon Admitting Provider: Attending Provider:Bernard Nagy MD Primary Care Physician:Bonifacio Bernard MD Other Provider:Clarita De Oliveiraingham Anesthesia Reason for Visit Left Knee Arthrofibrosis Ht/WT & BMI Height (Feet): 5 Height (Inches): 5.75 Weight (Kilograms): 76.8 Body Mass Index 27.00 Allergies Coded Allergies: No Known Allergies (Verified Allergy, Unknown, 03/29/17) Past Anesthesia History Anesthesia History: Positive for:: Abnormal Airway (Thyroid enlargement), Anesthesia Reactions (Nausea and vomiting), Denies:: Difficult Intubation, Fam Anesthesia Reaction, Fam Malignant Hypertherm, Malignant Hyperthermia Diabetes History Hx Diabetes?: Yes Type of Diabetes: Type II Glycemic Control: Oral Medication MRSA MRSA: No Medications Blood Thinner: Aspirin Hypertension Medication: Yes Home Meds Incl Beta Fabiola: No Active Scripts Docusate Sodium (Colace)100 Mg [id number] Mg PO BID PRN For Constipation #30 CAPSULE Prov:Becca Wayne PA-C 02/05/17 oxyCODONE 5 Mg Tablet5-15 Mg PO Q4H PRN For Severe Pain #100 TABLET Prov:Becca Wayne PA-C 02/05/17 Hydroxyzine Pamoate (HydrOXYzine Pamoate)25 Mg [id number] Mg PO Q6H PRN spasms /restlessness #60 CAPSULE Prov:Becca Wayne PA-C 02/05/17 Aspirin Chew 81 Mg Chew81 Mg PO BID #80 TABLET Prov:Becca Wayne PA-C 02/05/17 Reported Medications Metformin 500 Mg [id number] Mg PO DAILY #2 TABLET Ref 0 01/27/17 Lisinopril 20 Mg Oklqfa19 Mg PO DAILY 30 Days Ref 0 01/27/17 Atorvastatin (Lipitor)10 Mg Tab10 Mg PO DAILY Ref 0 01/27/17 History History of ENT Problems?: Yes HEENT History: Positive for:: Abnormal Airway (Thyroid enlargement) Denies:: Cataracts Difficult Intubation Dysphagia Hearing Problem Sinus Problem Denture Type: None Teeth Condition: Within Normal Limits Hx of Heart Problems?: No Cardiovascular History: Positive for:: Hypertension Denies:: AICD Heart Murmur Pacemaker Rheumatic Fever Thrombophlebitis Valvular Heart Disease Hx of Respiratory Problem?: No Respiratory History: Denies:: Asthma COPD Chest Surgery Cough Dyspnea Emphysema Hemoptysis Oxygen Administration Pneumonia Pulmonary Embolism Tuberculosis Use of C-PAP Machine Hx Neurologic Problems?: No Neurological History: Denies:: CVA Multiple Sclerosis Parkinson's Disease Seizures Hx of GI Problems?: Yes Hx of Problems?: Yes Genitourinary History: Denies:: HX of Hemodialysis Kidney Stones Urinary Tract Infection HX of Peritoneal Dialysis: No Skin History: Denies:: History Skin Disorders? Pressure Ulcers Hx Musculoskeletal Problems?: Yes Musculoskeletal History: Positive for:: Degenerative Joint Joint Replacement (Left knee revision 02/02/17) Musculoskeletal Trauma (arthrofibrosis left knee current admission problem) Osteoarthritis Denies:: Back Injury Systemic Lupus Hx of Psycho/Social Problems?: No Hx Surgeries?: Yes (left total knee, left total knee revision, neck surgery) Hx Any Other Health Problems?: Yes Other History: Positive for:: Cancer (Malignant. melonoma) Hospitalization Denies:: Endocrine Disease Thyroid Disease History Blood Transfusions: Denies:: Blood Transfuse Reaction Blood Transfusions Hx Diabetes: Yes Hx Alcohol Use: Yes (couple glasses of wine a week)Hx Substance Use: No Smoking Status: Former Smoker Stop/Bang P-Blood Pressure: treated: Yes B- Body Mass Index > 35 kg/m2: No A- Age over 50: Yes N- Neck Large Circumference: No G- Gender Male: No HILARIA Risk Assessment: Low Risk, <3 Yes Risk Assessment Category Category 1A: Patient has history of documented sleep apnea, and HAS NOT received any narcotic, sedative or anesthesia administration during this stay. Category 1B: Patient has history of documented sleep apnea, and HAS received any narcotic , sedative or anesthesia administration during this stay Category 2: Patient has SUSPECTED Obstructive Sleep Apnea, and HAS received any narcotic , sedative or anesthesia administration during this stay. Category 3: Patient has SUSPECTED Obstructive Sleep Apnea and HAS NOT received narcotic, sedative or anesthesia administration during this stay. Category 4: Outpatient in Procedural Areas with known sleep apnea or who screen positive for High Risk via the STOP/BANG questionnaire. Exam Exam Vital Signs Vital Signs Date Time Temp Pulse Resp B/P Pulse Ox O2 Delivery O2 Flow Rate FiO2 04/06/17 11:33 36.5 88 16 164/84 98 Room Air General Appearance: Alert, Oriented X3, Cooperative HEENT/AIRWAY: MP 1 Lungs: Clear to Auscultation Heart: Exam Unremarkable Meds/Labs/Diagnostics Admission Meds Current Medications Lactated Ringer's (Lr) 1,000 ml @ ud STK-MED ONCE IV Last administered on t 11:38; Start 04/06/17 at 11:38; Stop 04/06/17 at 11:39; Status DC Plan Impression Patient chart reviewed, patient interviewed and anesthestic plan with risks, benefits, and alternatives discussed, and informed consent obtained. ASA Physical Status: ASA2 Mod Systemic Disease Anesthetic Plan: GA Bene/Risks/Altern/Consents: Yes HP Complete Prior to Induction: Yes Jose Raza DO Apr 06, 2017 12:35
[2017-04-06 14:15] VITALS: BP 163/81; PULSE 81; RESP 14; O2SAT 96
--- NOTE | 2017-04-06 14:21 | PCM.ANEP1 ---
Post Anesthesia PACU Phase 1 Assessment Vital Signs Vital Signs Date Time Temp Pulse Resp B/P Pulse Ox O2 Delivery O2 Flow Rate FiO2 04/06/17 11:33 36.5 88 16 164/84 98 Room Air Anesthetic Administered: GA Level of Alertness: Awake, talking TREADWELL's with Equal Strength: Yes Pain: No Nausea or Vomiting: No CV Function & Hydration Stable: Yes Airway Device: Oxygen Delivery: Room Air Lungs: Clear to Auscultation PACU Phase 2 Assessment Complications: No Follow up Care: N/A Patient Instructions Provided: N/A Jose Raza DO Apr 06, 2017 14:21
--- NOTE | 2017-04-06 14:32 | OP ---
[address] [address] OPERATIVE REPORT PATIENT: RICARDO BURRIS : 1940 MR#: [id number] ADMIT: 04/06/2017 JOB ID: [id number] DATE OF SURGERY: 04/06/2017 PREOPERATIVE DIAGNOSIS(ES): Arthrofibrosis left knee. POSTOPERATIVE DIAGNOSIS(ES): Arthrofibrosis left knee. PROCEDURE: 1. Manipulation under general anesthesia. 2. Intraarticular injection. SURGEON: Bernard Nagy MD TWISTING FRAME OPERATOR: None. COMPLICATIONS: None. INDICATIONS: This woman underwent a revision of the knee. She has failed to achieve adequate range of motion. She was given a general anesthetic. Following this, the knee was manipulated. Release of adhesions was palpable. Excellent range of motion was achieved, achieving greater than 140 degrees flexion and full extension. The knee was then sterilely prepped and injected with Marcaine and 8 mg of dexamethasone. She tolerated this well. There were no complications. Taken to the recovery room in stable condition.
[2017-04-06 15:25] VITALS: BP 118/60; PULSE 68; RESP 15; O2SAT 98
== END | disposition home or self-care (01) ==
LOC: SAS 10:27
PROVIDERS: ATTEND Orthopaedic Surgery
DX: M24.662 Ankylosis, left knee (principal)
CPT/HCPCS: 27570; J1100; J1885; J2405; J2704; J3010; J7120